=== PATIENT | male | born 1935 | race Asian ===

== ENCOUNTER 2024-05-21 07:48 | Inpatient (IN) | payer MEDICARE, OTHER ==
[~2024-05-21] VITALS: Ht 175.3 cm; Wt 60.9 kg
[2024-05-21 08:27] LABS: BASOPHILS % (AUTO) 0.4 % (0.0-2.0); EOSINOPHILS # (AUTO) 0.2 K/uL (0.0-0.7); EOSINOPHILS % (AUTO) 1.9 % (0.0-6.0); HEMATOCRIT 37 % (39-51); HEMOGLOBIN 12.6 g/dL (13.5-17.5); LYMPHOCYTES # (AUTO) 1.1 K/uL (0.8-4.8); LYMPHOCYTES % (AUTO) 11.7 % (20.0-44.0); MEAN CORPUSCULAR HEMOGLOBIN 31 PG (26.0-33.0); MEAN CORPUSCULAR HGB CONC 34 g/dl (31.0-36.0); MEAN CORPUSCULAR VOLUME 92 fL (80-96); MONOCYTES # (AUTO) 0.7 K/uL (0.1-1.30); MONOCYTES % (AUTO) 6.9 % (2.0-12.0); NEUTROPHILS # (AUTO) 7.7 K/uL (1.8-8.9); NEUTROPHILS % (AUTO) 79.1 % (43.0-81.0); PLATELET COUNT (AUTO) 212 K/uL (150-450); RED BLOOD CELL COUNT(AUTO) 4.02 MIL/uL (4.5-6.0); RED CELL DISTRIBUTION WIDTH 13.8 % (11.5-15.0); WHITE BLOOD COUNT (AUTO) 9.7 K/uL (4.3-11.0)
[2024-05-21 08:46] LABS: ALCOHOL, BLOOD < 3 mg/dL (0-10)
[2024-05-21 08:55] LABS: CALCIUM, SERUM 8.4 mg/dL (8.5-10.1); CARBON DIOXIDE 30 mmol/L (21-32); CHLORIDE 102 mmol/L (98-107); CREATININE 0.5 mg/dL (0.6-1.3); GLUCOSE 101 mg/dL (74-106); POTASSIUM 4.4 mmol/L (3.5-5.1); SODIUM SERUM 137 mmol/L (136-145); UREA NITROGEN, BLOOD 19 mg/dL (7-18)
[2024-05-21 09:08] LABS: NT-PRO BNP 59 pg/mL (0-125)
[2024-05-21 09:39] LABS: SERUM AMMONIA 30 umol/L (11-32)
[2024-05-21] MEDS: CEFEPIME 1 GM in IV D5W 50 ML IV ONE (10:00)
[2024-05-21] MEDS: VANCOMYCIN 1 GM in IV D5W 250 ML IV ONE (10:00)
[2024-05-21 13:42] LABS: AMPHETAMINE, URINE NEGATIVE (NEGATIVE); BARBITURATE, URINE NEGATIVE (NEGATIVE); CANNABINOID, URINE NEGATIVE (NEGATIVE); COCCAINE, URINE NEGATIVE (NEGATIVE); OPIATE, URINE NEGATIVE (NEGATIVE); PHENCYCLIDINE SCREEN,URINE NEGATIVE (NEGATIVE)
[2024-05-21 13:47] LABS: BENZODIAZEPINE, URINE POSITIVE (NEGATIVE)
[2024-05-21 14:32] LABS: APPEARANCE,URINE CLEAR (CLEAR); BILIRUBIN,URINE NEGATIVE (NEGATIVE); BLOOD, URINE TRACE-INTA Ery/uL (NEGATIVE); COLOR,URINE YELLOW (YELLOW); KETONES,URINE NEGATIVE (NEGATIVE); LEUKOCYTE ESTERASE ,URINE NEGATIVE (NEGATIVE); NITRITE, URINE NEGATIVE (NEGATIVE); PH,URINE 6.5 (5.0-8.0); PROTEIN,URINE NEGATIVE (NEGATIVE); UGLUCOSE NEGATIVE (NEGATIVE); UROBILINOGEN,URINE 0.2 EU/dL (0.2)
[2024-05-21 16:07] LABS: WBC,URINE 0-2 /HPF (0-3)
[2024-05-21 16:08] LABS: ADD URINE CULTURE NO; BACTERIA,URINE None seen /HPF (None Seen); SQUAMOUS EPITHELIAL CELL,UR 0-2 /HPF (None Seen)
[2024-05-21 16:30] VITALS: BP 156/76; TEMP 97.9; O2SAT 100
[2024-05-21] MEDS ORDERED: Z GUARD REMEDY 4 OZ OINT TP PRN (16:30)
[2024-05-21] MEDS ORDERED: ONDANSETRON HCL/PF 4 MG/2 ML VIAL IVP PRN (16:30)
[2024-05-21] MEDS ORDERED: MAGNESIUM HYDROXIDE 30 ML UDC PO PRN (16:30)
[2024-05-21] MEDS: ENOXAPARIN SODIUM 40 MG/0.4 ML DISP.SYRIN SQ SCH (17:29)
[2024-05-21] MEDS: ZOLPIDEM TARTRATE 5 MG TABLET PO PRN (20:35)
[2024-05-21] MEDS: CEFEPIME 2 GM in IV D5W 100 ML IV SCH (21:02)
[2024-05-21 21:12] VITALS: BP 134/68; TEMP 97.9; O2SAT 100
[2024-05-21] MEDS: VANCOMYCIN 750 MG in IV D5W 250 ML IV SCH (22:39)
[2024-05-21] MEDS ORDERED: CEFEPIME 2 GM in IV D5W 100 ML IV SCH (23:00)
[2024-05-22] VITALS (7 sets, daily range): BP systolic 111–151; BP diastolic 59–81; TEMP 97.5–98.4; O2SAT 95–100
[2024-05-22 06:54] LABS: BASOPHILS % (AUTO) 0.4 % (0.0-2.0); EOSINOPHILS # (AUTO) 0.2 K/uL (0.0-0.7); EOSINOPHILS % (AUTO) 1.9 % (0.0-6.0); HEMATOCRIT 39 % (39-51); HEMOGLOBIN 13.1 g/dL (13.5-17.5); MEAN CORPUSCULAR HEMOGLOBIN 31 PG (26.0-33.0); MEAN CORPUSCULAR HGB CONC 34 g/dl (31.0-36.0); MEAN CORPUSCULAR VOLUME 93 fL (80-96); MONOCYTES # (AUTO) 0.7 K/uL (0.1-1.30); MONOCYTES % (AUTO) 6.7 % (2.0-12.0); NEUTROPHILS # (AUTO) 8.3 K/uL (1.8-8.9); PLATELET COUNT (AUTO) 203 K/uL (150-450); RED CELL DISTRIBUTION WIDTH 13.6 % (11.5-15.0); WHITE BLOOD COUNT (AUTO) 10.2 K/uL (4.3-11.0)
[2024-05-22 07:31] LABS: CREATININE 0.6 mg/dL (0.6-1.3); MAGNESIUM 2.5 mg/dL (1.8-2.4); POTASSIUM 4.2 mmol/L (3.5-5.1)
[2024-05-22] MEDS: PANTOPRAZOLE 40 MG TABLET.DR PO SCH (07:43)
[2024-05-22 07:55] LABS: THYROID STIMULATING HORMONE 0.71 uIU/mL (0.358-3.74)
[2024-05-22] MEDS: MAG HYDROX/AL HYDROX/SIMETH 30 ML UDC PO PRN (17:55)
[2024-05-23] VITALS: BP 154/76; TEMP 97.9; O2SAT 100
[2024-05-23] MEDS: ALBUTEROL HALF STRENGTH 1.25 MG/3 ML VIAL.NEB NEB SCH (13:23)
[2024-05-23] MEDS: IPRATROPIUM NEB FS 0.5 MG/2.5 ML AMPUL.NEB NEB SCH (13:23)
[2024-05-23 20:00] VITALS: BP 146/74; TEMP 97.5; O2SAT 98
[2024-05-23] MEDS: ACETAMINOPHEN 325 MG TABLET PO PRN (22:14)
[2024-05-24] VITALS (12 sets, daily range): BP systolic 129–157; BP diastolic 53–78; TEMP 97.5–98.5; O2SAT 95–100
[2024-05-24 05:31] LABS: ABG BASE EXCESS 4.1 mmol/L (-2.0-3.0); ABG OXYGEN SATURATION 99.4 % (94.0-98.0); ABG PCO2 16.1 mmHg (35.0-48.0); ABG PH 7.726 (7.350-7.450); ABG TOTAL HEMOGLOBIN 14.7 G/dL (13.5-17.5); COHb 0.8 % (0.5-1.5); MetHb 0.3 % (0.0-1.5); O2Hb 98.3 % (94.0-97.0); SITE, ABG RIGHT RADIAL
[2024-05-24] MEDS: METHOCARBAMOL (750MG) 750 MG TABLET PO SCH (07:01)
[2024-05-24 07:13] LABS: BASOPHILS % (AUTO) 0.1 % (0.0-2.0); EOSINOPHILS % (AUTO) 0.1 % (0.0-6.0); HEMATOCRIT 42 % (39-51); HEMOGLOBIN 14.4 g/dL (13.5-17.5); LYMPHOCYTES # (AUTO) 1.3 K/uL (0.8-4.8); LYMPHOCYTES % (AUTO) 16.1 % (20.0-44.0); MEAN CORPUSCULAR HEMOGLOBIN 31 PG (26.0-33.0); MEAN CORPUSCULAR HGB CONC 34 g/dl (31.0-36.0); MEAN CORPUSCULAR VOLUME 91 fL (80-96); MONOCYTES # (AUTO) 0.6 K/uL (0.1-1.30); MONOCYTES % (AUTO) 7.1 % (2.0-12.0); NEUTROPHILS # (AUTO) 6.4 K/uL (1.8-8.9); NEUTROPHILS % (AUTO) 76.6 % (43.0-81.0); PLATELET COUNT (AUTO) 250 K/uL (150-450); RED BLOOD CELL COUNT(AUTO) 4.57 MIL/uL (4.5-6.0); RED CELL DISTRIBUTION WIDTH 13.7 % (11.5-15.0); WHITE BLOOD COUNT (AUTO) 8.3 K/uL (4.3-11.0)
[2024-05-24 07:18] LABS: CREATININE 0.7 mg/dL (0.6-1.3); MAGNESIUM 2.2 mg/dL (1.8-2.4); PHOSPHORUS 1.6 mg/dL (2.5-4.9)
[2024-05-24] MEDS: Sodium Bicarbonate 100 MEQ in IV NS 0.9% 1,000 ML IV SCH (07:44)
[2024-05-24] MEDS: POTASSIUM CHLORIDE 20 MEQ TAB.PRT.SR PO SCH (10:11)
[2024-05-24 13:32] LABS: CALCIUM, SERUM 8.2 mg/dL (8.5-10.1); CREATININE 0.8 mg/dL (0.6-1.3); POTASSIUM 3.7 mmol/L (3.5-5.1)
[2024-05-24] MEDS ORDERED: SIMV20TA2 PO (15:16)
[2024-05-24] MEDS ORDERED: PANT40TA2 PO (15:16)
[2024-05-24] MEDS ORDERED: ZOLP10TA2 PO (15:16)
[2024-05-24] MEDS ORDERED: CHOL200026 PO (15:16)
[2024-05-24] MEDS ORDERED: LEVO112T5 PO (15:16)
[2024-05-24] MEDS ORDERED: TEMA30CA PO (15:16)
[2024-05-24] MEDS ORDERED: GABA800T11 PO (15:16)
[2024-05-24] MEDS ORDERED: ACET-2030 PO (15:16)
[2024-05-24] MEDS ORDERED: IBUP-1957 PO (15:16)
[2024-05-24] MEDS ORDERED: MECL-182 PO (15:16)
[2024-05-24] MEDS ORDERED: QUET100T PO (15:16)
[2024-05-24] MEDS ORDERED: DULO20CA PO (15:16)
[2024-05-24] MEDS ORDERED: MELO-107 PO (15:16)
[2024-05-24] MEDS ORDERED: GABA300C PO (15:16)
[2024-05-24] MEDS ORDERED: FAMO20TA80 PO (15:16)
[2024-05-24] MEDS: K PHOS NEUTRAL 250 MG TABLET PO ONE (17:05)
[2024-05-24] MEDS: VANCOMYCIN 1 GM in IV D5W 250ml IV SCH (22:24)
[2024-05-25] VITALS (9 sets, daily range): BP systolic 109–149; BP diastolic 52–72; TEMP 97.7–98.2; O2SAT 95–99
[2024-05-25] MEDS ORDERED: TIOT18CA3 INH (11:56)
[2024-05-25] MEDS ORDERED: FLUT1BLS IH (11:56)
[2024-05-25] MEDS ORDERED: AMOX-430 PO (11:56)
[2024-05-25 13:33] LABS: CALCIUM, SERUM 8.2 mg/dL (8.5-10.1); CREATININE 0.6 mg/dL (0.6-1.3); POTASSIUM 3.3 mmol/L (3.5-5.1)
== END 2024-05-25 15:20 | disposition home or self-care (01) | DRG 189 ==
LOC: ER 07:56 → TRANSITION 15:40 → TELE 15:53 → MED 05-25 12:36
PROVIDERS: ADMIT Student in an Organized Health Care Education/Training Program; ATTEND Student in an Organized Health Care Education/Training Program
DX: J96.01 Acute respiratory failure with hypoxia (principal); G93.41 Metabolic encephalopathy; E87.1 Hypo-osmolality and hyponatremia; E86.0 Dehydration; D64.9 Anemia, unspecified; J44.9 Chronic obstructive pulmonary disease, unspecified; I10 Essential (primary) hypertension
CPT/HCPCS: 36415; 36600; 70450-TC; 71045-TC; 80048-TC; 80202-TC; 81001; 82140-TC; 82803-TC; 82962-TC; 83605-TC; 83735-TC; 83880; 84100-TC; 84439-TC; 84443-TC; 84484-TC; 85025-TC; 87040-TC; 93970-TC; 94799-TC; A4223; G0378; G0480; J0692; J1650; J3370; J3371; J7030; J7060

== ENCOUNTER 2025-02-02 08:00 | Inpatient (IN) | payer MEDICARE, OTHER ==
[~2025-02-02] VITALS: Ht 165.1 cm; Wt 55.8 kg
[~2025-02-02 08:00] MED LIST: ACET-2030 PO; AMOX-430 PO; CHOL200026 PO; DULO20CA PO; FAMO20TA80 PO; FLUT1BLS IH; GABA300C PO; GABA800T11 PO; IBUP-1957 PO; LEVO112T5 PO; MECL-182 PO; MELO-107 PO; PANT40TA2 PO; QUET100T PO; SIMV20TA2 PO; TEMA30CA PO; TIOT18CA3 INH; ZOLP10TA2 PO
[2025-02-02] MEDS ORDERED: ACETAMINOPHEN ES 500 MG TABLET ONE (08:31)
[2025-02-02] MEDS: ACETAMINOPHEN ES 500 MG TABLET PO ONE (08:37)
[2025-02-02 08:38] LABS: PLATELET COUNT (AUTO) 216 K/uL (150-450); RED BLOOD CELL COUNT(AUTO) 4.99 MIL/uL (4.5-6.0); RED CELL DISTRIBUTION WIDTH 14.4 % (11.5-15.0); WHITE BLOOD COUNT (AUTO) 6.1 K/uL (4.3-11.0)
[2025-02-02 08:58] LABS: CALCIUM, SERUM 9.5 mg/dL (8.5-10.1); CREATININE 1.1 mg/dL (0.6-1.3); SERUM AMMONIA 3 umol/L (11-32); SODIUM SERUM 131 mmol/L (136-145); UREA NITROGEN, BLOOD 18 mg/dL (7-18)
[2025-02-02 09:04] LABS: ALCOHOL, BLOOD < 3 mg/dL (0-10); ASPARTATE AMINOTRANSFERASE 26 U/L (15-37); TOTAL PROTEIN, SERUM 8.6 g/dL (6.4-8.2)
[2025-02-02 09:08] LABS: NT-PRO BNP 273.0 pg/mL (0-125)
[2025-02-02 09:20] LABS: LYMPHOCYTES % (MANUAL) 5 % (16-48); MONOCYTES % (MANUAL) 4 % (0-11.0); NEUTROPHILS % (MANUAL) 91 (42-76)
[2025-02-02 09:21] LABS: PLATELET ESTIMATE ADEQUATE
[2025-02-02 10:59] LABS: APPEARANCE,URINE CLEAR (CLEAR); BLOOD, URINE Small Ery/uL (NEGATIVE); LEUKOCYTE ESTERASE ,URINE Negative (NEGATIVE); NITRITE, URINE NEGATIVE (NEGATIVE); UGLUCOSE Negative (NEGATIVE)
[2025-02-02 11:00] LABS: ADD URINE CULTURE NO; SQUAMOUS EPITHELIAL CELL,UR Few /HPF (None Seen)
[2025-02-02 11:04] LABS: AMPHETAMINE, URINE NEGATIVE (NEGATIVE); BARBITURATE, URINE NEGATIVE (NEGATIVE); CANNABINOID, URINE NEGATIVE (NEGATIVE); COCCAINE, URINE NEGATIVE (NEGATIVE); OPIATE, URINE NEGATIVE (NEGATIVE)
[2025-02-02 11:09] LABS: BENZODIAZEPINE, URINE POSITIVE (NEGATIVE)
[2025-02-02] MEDS ORDERED: MORPHINE SULFATE INJ 2 MG/ML DISP.SYRIN IV PRN (11:30)
[2025-02-02] MEDS ORDERED: ZOLPIDEM TARTRATE 10 MG TABLET PO PRN (11:30)
[2025-02-02] MEDS ORDERED: hydrALAZINE HCL IV 20 MG VIAL IV PRN (11:30)
[2025-02-02] MEDS ORDERED: ONDANSETRON HCL/PF 4 MG/2 ML VIAL IVP PRN (11:30)
[2025-02-02] MEDS ORDERED: ACETAMINOPHEN 325 MG TABLET PO PRN (11:30)
[2025-02-02] MEDS: GABAPENTIN 300 MG CAPSULE PO SCH (13:05)
[2025-02-02 14:40] VITALS: BP 106/62; TEMP 98.4; O2SAT 95
[2025-02-02 20:00] VITALS: BP 138/65; TEMP 98.2; O2SAT 96
[2025-02-02] MEDS: MECLIZINE HCL 25 MG TABLET PO SCH (21:12)
[2025-02-02] MEDS: GABAPENTIN 400 MG CAPSULE PO SCH (21:14)
[2025-02-02] MEDS: QUETIAPINE FUMARATE 100 MG TABLET PO SCH (21:14)
[2025-02-02] MEDS: HEPARIN SODIUM, PORCINE 5000 UNITS/1 ML VIAL SQ SCH (21:16)
[2025-02-03 04:00] VITALS: BP 111/68; TEMP 97.3
[2025-02-03 07:28] LABS: PLATELET COUNT (AUTO) 185 K/uL (150-450); RED BLOOD CELL COUNT(AUTO) 4.25 MIL/uL (4.5-6.0); RED CELL DISTRIBUTION WIDTH 14.0 % (11.5-15.0); WHITE BLOOD COUNT (AUTO) 4.2 K/uL (4.3-11.0)
[2025-02-03 08:00] VITALS: BP 118/63; TEMP 98.6
[2025-02-03 08:06] LABS: ASPARTATE AMINOTRANSFERASE 27.0 U/L (15-37); CALCIUM, SERUM 8.8 mg/dL (8.5-10.1); CREATININE 0.8 mg/dL (0.6-1.3); PHOSPHORUS 3.8 mg/dL (2.5-4.9); SODIUM SERUM 133.0 mmol/L (136-145); TOTAL PROTEIN, SERUM 6.5 g/dL (6.4-8.2); UREA NITROGEN, BLOOD 16.0 mg/dL (7-18)
[2025-02-03] MEDS: DULOXETINE HCL 20 MG CAPSULE.DR PO SCH (08:58)
[2025-02-03] MEDS: LEVOTHYROXINE SODIUM 112 MCG TABLET PO SCH (08:59)
[2025-02-03] MEDS: FAMOTIDINE (20 MG) 20 MG TABLET PO SCH (09:01)
[2025-02-03] MEDS: SIMVASTATIN 20 MG TABLET PO SCH (09:02)
[2025-02-03] MEDS: PANTOPRAZOLE 40 MG TABLET.DR PO SCH (09:02)
[2025-02-03] MEDS: CHOLECALCIFEROL 1,000 UNIT TABLET (VIT D3) PO SCH (09:02)
[2025-02-03] MEDS ORDERED: ZOLPIDEM TARTRATE 10 MG TABLET PO PRN (10:00)
[2025-02-03] MEDS: REMDESIVIR (CHARGED) 200 MG, *LOADING DOSE 1 EA in IV NS 0.9% 210 ML IV ONE (14:16)
[2025-02-03 16:00] VITALS: BP 151/73; TEMP 97.9
[2025-02-03 20:00] VITALS: BP 133/71; TEMP 98.1; O2SAT 96
[2025-02-04 04:00] VITALS: BP 137/66; TEMP 98.8; O2SAT 95
[2025-02-04 08:00] VITALS: BP 126/70; TEMP 98.4; O2SAT 92
[2025-02-04 11:40] LABS: PLATELET COUNT (AUTO) 217 K/uL (150-450); RED BLOOD CELL COUNT(AUTO) 4.36 MIL/uL (4.5-6.0); RED CELL DISTRIBUTION WIDTH 14.2 % (11.5-15.0); WHITE BLOOD COUNT (AUTO) 9.2 K/uL (4.3-11.0)
[2025-02-04 11:52] LABS: CALCIUM, SERUM 8.5 mg/dL (8.5-10.1); CREATININE 0.8 mg/dL (0.6-1.3); SODIUM SERUM 132.0 mmol/L (136-145); UREA NITROGEN, BLOOD 17.0 mg/dL (7-18)
[2025-02-04 11:58] LABS: ASPARTATE AMINOTRANSFERASE 27.0 U/L (15-37); TOTAL PROTEIN, SERUM 6.6 g/dL (6.4-8.2)
[2025-02-04 16:00] VITALS: BP 128/67; TEMP 98.4; O2SAT 95
[2025-02-04] MEDS: REMDESIVIR (CHARGED) 100 MG in IV NS 0.9% 80 ML IV SCH (16:09)
[2025-02-04 20:00] VITALS: BP 141/59; TEMP 98.2; O2SAT 95
[2025-02-05 04:00] VITALS: BP 114/57; TEMP 98.1; O2SAT 96
[2025-02-05 07:56] LABS: PLATELET COUNT (AUTO) 225 K/uL (150-450); RED BLOOD CELL COUNT(AUTO) 4.57 MIL/uL (4.5-6.0); RED CELL DISTRIBUTION WIDTH 13.9 % (11.5-15.0); WHITE BLOOD COUNT (AUTO) 12.1 K/uL (4.3-11.0)
[2025-02-05 07:57] LABS: INR 0.99 (0.91-1.10)
[2025-02-05 08:00] VITALS: BP 111/56; TEMP 98.1; O2SAT 96
[2025-02-05 08:13] LABS: ASPARTATE AMINOTRANSFERASE 38.0 U/L (15-37); CREATININE 0.8 mg/dL (0.6-1.3); SODIUM SERUM 136.0 mmol/L (136-145); TOTAL PROTEIN, SERUM 7.1 g/dL (6.4-8.2); UREA NITROGEN, BLOOD 20.0 mg/dL (7-18)
[2025-02-05 08:23] LABS: CALCIUM, SERUM 8.8 mg/dL (8.5-10.1)
[2025-02-05] MEDS ORDERED: MECLIZINE HCL 12.5 MG TABLET PO SCH (21:00)
== END 2025-02-05 16:40 | disposition home or self-care (01) | DRG 178 ==
LOC: ER 08:12 → MEDSG1 10:29
PROVIDERS: ADMIT Internal Medicine; ATTEND Internal Medicine
PROC: XW033E5 Introduction of Remdesivir Anti-infective into Peripheral Vein, Percutaneous Approach, New Technology Group 5 (ICD-10-PCS; principal; 2025-02-03)
DX: U07.1 COVID-19 (principal); E87.1 Hypo-osmolality and hyponatremia; N17.9 Acute kidney failure, unspecified; E86.0 Dehydration; E03.9 Hypothyroidism, unspecified; E78.5 Hyperlipidemia, unspecified; R53.1 Weakness; I10 Essential (primary) hypertension; L98.8 Other specified disorders of the skin and subcutaneous tissue; L89.151 Pressure ulcer of sacral region, stage 1; S80.211A Abrasion, right knee, initial encounter; X58.XXXA Exposure to other specified factors, initial encounter; Y93.9 Activity, unspecified; Y92.009 Unspecified place in unspecified non-institutional (private) residence as the place of occurrence of the external cause
CPT/HCPCS: 36415; 70450-TC; 71045-TC; 80048-TC; 80053-TC; 80076-TC; 81001; 82140-TC; 82728-TC; 83735-TC; 83880; 84100-TC; 84439-TC; 84443-TC; 84484-TC; 85025-TC; 85027-TC; 85378-TC; 85610-TC; 85730-TC; 86140-TC; 97110-TC; 97116-TC; 97530-TC; A4216; A4223; G0378; G0480; J1644; J2048; J7030; J7050; J8597

== ENCOUNTER 2025-05-07 07:55 | Inpatient (IN) | payer MEDICARE, OTHER ==
[~2025-05-07] VITALS: Ht 175.3 cm; Wt 57.8 kg
[~2025-05-07 07:55] MED LIST changes: -AMOX-430 PO; -FLUT1BLS IH; -TIOT18CA3 INH
[2025-05-07] MEDS ORDERED: ACETAMINOPHEN 325 MG/SUPP.RECT RC ONE ×2 (08:17→08:19)
[2025-05-07 08:22] LABS: PLATELET COUNT (AUTO) 230 K/uL (150-450); RED BLOOD CELL COUNT(AUTO) 4.22 MIL/uL (4.5-6.0); RED CELL DISTRIBUTION WIDTH 14.8 % (11.5-15.0); WHITE BLOOD COUNT (AUTO) 10.2 K/uL (4.3-11.0)
[2025-05-07] MEDS: VANCOMYCIN 1 GM in IV D5W 250 ML IV ONE (08:30)
[2025-05-07 08:33] LABS: INR 1.0 (0.91-1.10)
[2025-05-07 08:38] LABS: LACTIC ACID 2.5 mmol/L (0.4-2.0)
[2025-05-07] MEDS: ACETAMINOPHEN 325 MG TABLET PO ONE (08:41)
[2025-05-07 08:42] LABS: CALCIUM, SERUM 8.2 mg/dL (8.5-10.1); CREATININE 1.0 mg/dL (0.6-1.3); SODIUM SERUM 132 mmol/L (136-145); UREA NITROGEN, BLOOD 23 mg/dL (7-18)
[2025-05-07] MEDS: CEFEPIME 1 GM in IV D5W 50 ML IV ONE (08:42)
[2025-05-07] MEDS: IV LR 1000 ML 1,000 ML BAG IV ONE (08:42)
[2025-05-07 08:45] LABS: PHOSPHORUS 2.3 mg/dL (2.5-4.9)
[2025-05-07 08:46] LABS: CREATINE KINASE, TOTAL 121 U/L (39-308)
[2025-05-07 08:48] LABS: ASPARTATE AMINOTRANSFERASE 17 U/L (15-37); TOTAL PROTEIN, SERUM 7.2 g/dL (6.4-8.2)
[2025-05-07] MEDS ORDERED: FLUO20CA36 PO (09:10)
[2025-05-07 09:51] LABS: APPEARANCE,URINE CLEAR (CLEAR); BLOOD, URINE TRACE-INTA Ery/uL (NEGATIVE); LEUKOCYTE ESTERASE ,URINE TRACE (NEGATIVE); NITRITE, URINE POSITIVE (NEGATIVE); UGLUCOSE NEGATIVE (NEGATIVE)
[2025-05-07 11:01] LABS: ADD URINE CULTURE YES; SQUAMOUS EPITHELIAL CELL,UR Rare /HPF (None Seen)
[2025-05-07 12:00] VITALS: BP 138/64; TEMP 97.9; O2SAT 96
[2025-05-07] MEDS ORDERED: MAGNESIUM HYDROXIDE 30 ML UDC PO PRN (12:30)
[2025-05-07] MEDS ORDERED: DOSING PER PHARMACY-CEFEPIME IVPB XX PRN (12:30)
[2025-05-07] MEDS ORDERED: MAG HYDROX/AL HYDROX/SIMETH 30 ML UDC PO PRN (12:30)
[2025-05-07] MEDS ORDERED: ONDANSETRON HCL/PF 4 MG/2 ML VIAL IVP PRN (12:30)
[2025-05-07] MEDS ORDERED: ZOLPIDEM TARTRATE 5 MG TABLET PO PRN (12:30)
[2025-05-07] MEDS ORDERED: Z GUARD REMEDY 4 OZ OINT TP PRN (12:30)
[2025-05-07] MEDS ORDERED: ACETAMINOPHEN 325 MG TABLET PO PRN (12:30)
[2025-05-07] MEDS: IV NS 0.9% 1,000 ML IV PRN (13:19)
[2025-05-07] MEDS: ENOXAPARIN SODIUM 40 MG/0.4 ML DISP.SYRIN SQ SCH (13:20)
[2025-05-07] MEDS ORDERED: ACETAMINOPHEN ES 500 MG TABLET PO PRN (14:30)
[2025-05-07] MEDS ORDERED: ZOLPIDEM TARTRATE 10 MG TABLET PO PRN (14:30)
[2025-05-07 16:00] VITALS: BP 140/55; TEMP 98.1; O2SAT 98
[2025-05-07] MEDS: GABAPENTIN 300 MG CAPSULE PO SCH (16:19)
[2025-05-07] MEDS: K PHOS NEUTRAL 250 MG TABLET PO ONE (16:19)
[2025-05-07] MEDS: CEFEPIME 2 GM in IV D5W 100 ML IV SCH (19:39)
[2025-05-07 20:00] VITALS: BP 141/63; TEMP 98.2; O2SAT 96
[2025-05-07] MEDS: GABAPENTIN 400 MG CAPSULE PO SCH (21:42)
[2025-05-07] MEDS: TEMAZEPAM 15 MG CAPSULE PO SCH (21:43)
[2025-05-07] MEDS: QUETIAPINE FUMARATE 100 MG TABLET PO SCH (21:43)
[2025-05-08] VITALS: BP 130/60; TEMP 98.6; O2SAT 94
[2025-05-08 04:00] VITALS: BP 116/68; TEMP 97.5; O2SAT 94; O2SAT 96
[2025-05-08 06:16] LABS: CALCIUM, SERUM 7.9 mg/dL (8.5-10.1); CREATININE 0.7 mg/dL (0.6-1.3); PHOSPHORUS 3.2 mg/dL (2.5-4.9); SODIUM SERUM 134 mmol/L (136-145); UREA NITROGEN, BLOOD 11 mg/dL (7-18)
[2025-05-08 06:26] LABS: PLATELET COUNT (AUTO) 203 K/uL (150-450); RED BLOOD CELL COUNT(AUTO) 3.74 MIL/uL (4.5-6.0); RED CELL DISTRIBUTION WIDTH 15.0 % (11.5-15.0); WHITE BLOOD COUNT (AUTO) 8.9 K/uL (4.3-11.0)
[2025-05-08] MEDS ORDERED: PANTOPRAZOLE 40 MG TABLET.DR PO SCH (07:30)
[2025-05-08 08:00] VITALS: BP 120/58; TEMP 98.2; O2SAT 92
[2025-05-08] MEDS: SIMVASTATIN 20 MG TABLET PO SCH (08:15)
[2025-05-08] MEDS: LEVOTHYROXINE SODIUM 112 MCG TABLET PO SCH (08:15)
[2025-05-08] MEDS: PANTOPRAZOLE 40 MG TABLET.DR PO SCH (08:15)
[2025-05-08] MEDS: FLUOXETINE HCL 20 MG CAPSULE PO SCH (08:15)
[2025-05-08] MEDS: CHOLECALCIFEROL 1,000 UNIT TABLET (VIT D3) PO SCH (08:15)
[2025-05-08] MEDS: MELOXICAM 7.5 MG TABLET PO SCH (09:34)
[2025-05-08 16:00] VITALS: BP 116/63; TEMP 97.9; O2SAT 96
[2025-05-08 18:54] LABS: URINE SODIUM, RANDOM 71 mmol/l (40-220)
[2025-05-08 21:04] VITALS: BP 114/62; TEMP 98.6; O2SAT 94
[2025-05-09 00:38] VITALS: BP 143/68; TEMP 98.2; O2SAT 93
[2025-05-09 04:00] VITALS: BP 179/76; TEMP 97.5; O2SAT 94
[2025-05-09 06:47] LABS: CALCIUM, SERUM 7.7 mg/dL (8.5-10.1); CREATININE 0.5 mg/dL (0.6-1.3); PHOSPHORUS 2.5 mg/dL (2.5-4.9); SODIUM SERUM 138.0 mmol/L (136-145); UREA NITROGEN, BLOOD 10.0 mg/dL (7-18)
[2025-05-09 08:00] VITALS: BP 169/72; TEMP 98.6; O2SAT 96
[2025-05-09] MEDS ORDERED: CEPH-570 PO (09:27)
[2025-05-09] MEDS: POTASSIUM CHLORIDE 20 MEQ TAB.PRT.SR PO ONE (11:00)
== END 2025-05-09 16:35 | disposition home or self-care (01) | DRG 871 ==
LOC: ER 07:58 → MED 10:55 → TELE 13:03 → MED 05-09 10:44
PROVIDERS: ADMIT Student in an Organized Health Care Education/Training Program; ATTEND Student in an Organized Health Care Education/Training Program
DX: A41.9 Sepsis, unspecified organism (principal); G92.8 Other toxic encephalopathy; E87.20 Acidosis, unspecified; N39.0 Urinary tract infection, site not specified; E03.9 Hypothyroidism, unspecified; I10 Essential (primary) hypertension; D64.9 Anemia, unspecified; E87.1 Hypo-osmolality and hyponatremia; E86.0 Dehydration; E78.5 Hyperlipidemia, unspecified; R53.1 Weakness; Z20.822 Contact with and (suspected) exposure to COVID-19; Z91.81 History of falling
CPT/HCPCS: 36415; 70450-TC; 71045-TC; 72125-TC; 72170-TC; 80048-TC; 80076-TC; 81001; 82550-TC; 82962-TC; 83605-TC; 83735-TC; 83935-TC; 84100-TC; 84300-TC; 84443-TC; 84484-TC; 84550-TC; 85025-TC; 85730-TC; 87040-TC; 87086-TC; 97112-TC; 97116-TC; 97530-TC; A4223; G0378; J0692; J1650; J3373; J7030; J7060; J7120